=== PATIENT | male | born 1990 | race Caucasian/White ===

== ENCOUNTER 2024-09-15 00:51 | Emergency (ER) | payer OTHER ==
[~2024-09-15] VITALS: Ht 180.3 cm; Wt 84.0 kg
[2024-09-15 01:01] VITALS: O2SAT 98
[2024-09-15] MEDS: CYCLOBENZAPRINE 10MG TABLET PO ONE (02:12)
[2024-09-15] MEDS: LIDOCAINE 5% PATCH TOP SCH ×2 (02:12→03:59)
[2024-09-15] MEDS: KETOROLAC 15MG/ML VIAL IM ONE (02:13)
[2024-09-15] MEDS ORDERED: LIDO700A30 TP (03:27)
[2024-09-15] MEDS ORDERED: IBUP-2028 MT (03:28)
[2024-09-15 03:55] VITALS: BP 146/78; PULSE 50; RESP 16; TEMP 36.7; O2SAT 98
== END 2024-09-15 04:04 | disposition home or self-care (01) ==
LOC: ER 01:01
DX: M54.50 Low back pain, unspecified (principal)
CPT/HCPCS: 96372; 99284; J1885; Z7610 ×2